=== PATIENT | female | born 1980 | race Caucasian/White ===

== ENCOUNTER → 2018-02-11 | Outpatient (CLI) | payer BC | LOC: DIABETIC 04:52 | PROVIDERS: ATTEND Specialist | DX: E10.65 Type 1 diabetes mellitus with hyperglycemia (principal) | CPT/HCPCS: G0108 ==

== ENCOUNTER 2018-06-10 04:41 | Outpatient (CLI) | payer BC | END 2018-06-10 23:59 | disposition home or self-care (01) | LOC: DIABETIC 04:41 | PROVIDERS: ATTEND Specialist | DX: E10.65 Type 1 diabetes mellitus with hyperglycemia (principal) | CPT/HCPCS: G0108 ==